=== PATIENT | male | born 1955 | race Caucasian/White ===

== ENCOUNTER 2022-06-25 06:30 | Emergency (ER) | payer MEDICARE, SELFPAY ==
[2022-06-25 06:34] VITALS: BMI 38.7
[2022-06-25 06:36] VITALS: BP 190/84; PULSE 101; RESP 21; TEMP 37.1; O2SAT 94
--- NOTE | 2022-06-25 06:41 | XRR_ITS ---
PROCEDURE INFORMATION: Exam: XR Chest Exam date and time: 06/25/2022 7:20 AM Age: 66 years old Clinical indication: Cough and dyspnea; Additional info: Dyspnea/cough TECHNIQUE: Imaging protocol: Radiologic exam of the chest. Views: 1 view. Other technique: Frontal portable upright view of the chest. COMPARISON: CR XR chest 2V* [id number] 06/18/2022 11:48 AM FINDINGS: Tubes, catheters and devices: EKG leads are present overlying the chest. Lungs: The lungs are clear bilaterally. The pulmonary vasculature is normal. Pleural spaces: No pleural effusion. No pneumothorax. Heart/Mediastinum: The heart is normal in size and contour. Mediastinum: Stable. Bones/joints: Right lateral vertebral body marginal osteophytes are noted at multiple thoracic spinal levels. XR/XR chest 1V portable [id number] IMPRESSION: No acute cardiopulmonary abnormality identified.
--- NOTE | 2022-06-25 06:49 | ED_ITS ---
HPI - SOB/Dyspnea General: Chief Complaint: Shortness of Breath/Dyspnea Stated Complaint: high BP,SOB Time Seen by Provider: 06/25/22 06:35 Source: patient Mode of arrival: ambulatory Limitations: other (Patient not wearing his hearing aids) History of Present Illness: HPI Narrative: 66-year-old male presents emergency room with complaints of orthopnea moderately productive cough for the last week or so. He also noticed some home blood pressure monitoring his blood pressure is going up he seen his primary care last week and was given some Lasix for a short period of time he states he lost 10 pounds but he still has significant orthopnea he denies any fever sweats chills no chest pain. Chest x-ray reviewed from 816. He is also mildly tachycardic today he is currently only on lisinopril 10 mg daily. He is reporting a mildly productive cough nonpurulent whitish clear phlegm. He also states feels he gets a lump in his throat that is been present for several weeks. MD elicited complaint: shortness of breath and cough Pertinent past history: congestive heart failure Onset (ago): week(s) Timing: constant Severity: mild Exacerbating factors: lying flat and exertion Relieving factors: rest and upright position Known history of: congestive heart failure Associated symptoms: Reports chest congestion, cough and orthopnea; Deny abdominal pain, chest pain, diaphoresis, dizziness, extremity pain, fever(s), hemoptysis, lightheadedness, myalgias, nausea, palpitations, paresthesias, polydipsia, polyuria, rash, sense of impending doom, syncope or vomiting Treatment prior to arrival: none Review of Systems Const: Denies: fever(s), chills, fatigue, malaise or diaphoresis ENMT: Denies: throat pain, ear or mastoid pain, nasal discharge or nasal congestion Card: Reports: orthopnea; Denies: chest pain, palpitations, lightheadedness or syncope Resp: Reports: chest congestion; Denies: hemoptysis GI: Denies: abdominal pain, nausea or vomiting : Denies: flank pain, dysuria, urinary frequency or urinary urgency Musc: Denies: extremity pain Skin/Breast: Denies: rash or pruritus Neuro: Denies: dizziness Endo: Denies: polyuria or polydipsia [facility] ED PFSH: Medical History (Updated 06/25/22 @ 08:34 by Roberto Jarrett DO) Congestive heart failure Hypertension Hypothyroidism Morbid obesity Social History (Updated 06/25/22 @ 06:53 by Roberto Jarrett DO) Smoking and tobacco status: never smoked Alcohol intake: never Physical Exam Const: COMMON NORMALS: no acute distress GENERAL APPEARANCE: cooperative and comfortable ORIENTATION/CONSCIOUSNESS: Yes awake, Yes oriented to person, Yes oriented to place and Yes oriented to time HENMT: COMMON NORMALS: normocephalic and atraumatic HEAD & SCALP: normocephalic and atraumatic Eye: COMMON NORMALS: Equal, round and reactive pupils present, EOMs intact bilaterally, conjunctivae normal and no scleral icterus CONJUNCTIVA: Yes conjunctivae normal PUPIL: Yes Equal, round and reactive pupils present Neck/C-Spine: COMMON NORMALS: full ROM, no lymphadenopathy, supple and no JVD Resp: COMMON NORMALS: normal respiratory effort, No retractions and No use of accessory muscles AUSCULTATION: crackles Laterality: bilateral (At the bases) Cardio: COMMON NORMALS: no JVD, regular rate, regular rhythm and No murmurs present (Cardio) RATE: regular rate RHYTHM: regular rhythm GI: COMMON NORMALS: Soft to palpation and No hepatosplenomegaly present AUSCULTATION: Yes normoactive bowel sounds PALPATION: Yes Soft to palpation, No Tenderness to palpation present (GI), No Guarding due to palpation present (GI) and Yes No hepatosplenomegaly present Extremity: COMMON NORMALS: normal to inspection, capillary refill normal, no clubbing, cyanosis or edema, no calf tenderness and no pedal edema Neuro: SENSORIUM/ORIENTATION: Yes oriented to person, Yes oriented to place and Yes oriented to time Skin: COMMON NORMALS: no rashes or lesions noted GENERAL SKIN EXAM: no rashes or lesions noted Course Vital Signs: Vital signs: Vital Signs Temperature 98.7 F 06/25/22 06:36 Pulse Rate 60 06/25/22 11:15 Respiratory Rate 18 06/25/22 11:15 Blood Pressure 146/69 06/25/22 11:15 Pulse Oximetry 96 06/25/22 11:15 Oxygen Delivery Me thod 06/25/22 08:11 Oxygen Flow Rate 2 06/25/22 08:47 MDM - SOB/Dyspnea Medical Decision Making Patient is feeling somewhat better after Lasix was given here. We will discharge him home on Lasix 40 mg daily and add Toprol-XL 25 p.o. daily suspect he has some diastolic dysfunction. Get him set up for an outpatient echocardiogram. I called and talked to his primary caregiver he is agreed to see him within the next 2 days to reevaluate patient discussed with the patient we can discharge him as long as he had close follow-up. Advised him I had talked to Dr. Agudelo he should call Dr. Agudelo's office immediately after leaving here and arrange for a follow-up visit in the next day or 2. Case management will call make arrangements for the echocardiogram. Medical Records I reviewed the patient's medical records. Lab Data I reviewed the patient's lab results. : 06/25/22 06:55 06/25/22 06:55 Labs/Radiology: Radiology Impressions Chest X-Ray 06/25/22 06:41 IMPRESSION: No acute cardiopulmonary abnormality identified. Laboratory Results WBC 9.9 10^3/uL (4.0-10.0) 06/25/22 06:55 RBC 4.70 10^6/uL (4.1-5.3) 06/25/22 06:55 Hgb 14.0 g/dL (11.7-16.6) 06/25/22 06:55 Hct 41.7 % (42.0-52.0) L 06/25/22 06:55 MCV 88.7 fl (80-94) 06/25/22 06:55 MCH 29.8 pg (28.0-34.0) 06/25/22 06:55 MCHC 33.6 g/dL (30.0-36.0) 06/25/22 06:55 RDW 13.0 % (12.1-15.1) 06/25/22 06:55 Plt Count 222 10^3/cmm (130-400) 06/25/22 06:55 MPV 10.6 fL (7.4-10.4) H 06/25/22 06:55 Neut % (Auto) 48.7 % 06/25/22 06:55 Lymph % (Auto) 24.8 % 06/25/22 06:55 [place] % (Auto) 7.0 % 06/25/22 06:55 Eos % (Auto) 16.7 % 06/25/22 06:55 Baso % (Auto) 2.3 % 06/25/22 06:55 Neut # (Auto) 4.79 10^3/uL (1.8-7.7) 06/25/22 06:55 Lymph # (Auto) 2.5 10^3/uL (0.8-4.8) 06/25/22 06:55 [place] # (Auto) 0.7 10^3/uL (0.2-0.9) 06/25/22 06:55 Eos # (Auto) 1.7 10^3/uL (0.0-0.8) H 06/25/22 06:55 Baso # (Auto) 0.2 10^3/uL (0.0-0.1) H 06/25/22 06:55 Nucleated RBC % (auto) 0 % 06/25/22 06:55 Nucleated RBCs # 0.0 /100WBC 06/25/22 06:55 Sodium 141 mmol/L (136-145) 06/25/22 06:55 Potassium 4.1 mmol/L (3.5-5.1) 06/25/22 06:55 Chloride 102 mmol/L (98-107) 06/25/22 06:55 Carbon Dioxide 27 mmol/L (22-29) 06/25/22 06:55 Anion Gap 16.1 (5-19) 06/25/22 06:55 BUN 17 mg/dL (8-23) 06/25/22 06:55 Creatinine 0.8 mg/dL (0.7-1.2) 06/25/22 06:55 GFR Calculation 97.0 mL/min (90-130) 06/25/22 06:55 Glucose 138 mg/dL (65-115) H 06/25/22 06:55 Calculated Osmolality 296 mOsm/kg (285-295) H 06/25/22 06:55 Calcium 8.9 mg/dL (8.5-10.5) 06/25/22 06:55 Total Bilirubin 0.4 mg/dL (0.15-1.2) 06/25/22 06:55 AST 17 U/L (0-40) 06/25/22 06:55 ALT 18 U/L (0-41) 06/25/22 06:55 Alkaline Phosphatase 63 U/L (40-130) 06/25/22 06:55 Troponin T Baseline 16 ng/L (0-15) H 06/25/22 06:55 Troponin T 120 Minute 14.16 ng/L (0-15) 06/25/22 08:52 Delta Troponin T -1.84 ABS# (0-10) L 06/25/22 08:52 NT-Pro-B Natriuret Pep 18 pg/mL (0-125) 06/25/22 06:55 Total Protein 6.9 g/dL (6.6-8.7) 06/25/22 06:55 Albumin 4.5 g/dL (3.5-5.2) 06/25/22 06:55 Globulin 2.4 g/dL (1.3-4.6) 06/25/22 06:55 Discharge Plan Discharge Patient Disposition: Home Clinical Impression: Congestive heart failure, Hypertension Prescriptions: New Toprol XL 25 mg tablet extended release 24 hr 25 mg PO DAILY Qty: 30 0RF Lasix 40 mg tablet 40 mg PO QAM Qty: 30 0RF Discontinued furosemide [Lasix] 20 mg Tablet 20 mg PO QAM No Action NyQuil 7.5-60-30-1,000 mg/30 mL Liquid 15 ml PO BEDTIME PRN (Reason: Sleep) Robitussin-DM 10-100 mg/5 mL Syrup 10 ml PO Q4H PRN (Reason: Cough) levothyroxine 100 mcg tablet 100 mcg PO QAM amlodipine 10 mg tablet 10 mg PO QPM Aleve 220 mg Tablet 440 mg PO Q12H PRN (Reason: Pain) Flonase Allergy Relief 50 mcg/actuation [place],Suspension 2 spray INTRANASAL DAILY PRN (Reason: Allergy Symptoms) Rx Instructions: administer into each nostril Primatene Mist 0.125 mg/actuation Hfa Aerosol Inhaler 1 puff INHALATION Q4H PRN (Reason: asthma) Rx Instructions: may repeat once after 1 minute; do not exceed 8 inhalations per 24 hrs ProAir HFA 90 mcg/actuation Hfa Aerosol Inhaler 2 puff INHALATION QID PRN (Reason: Shortness Of Breath) Discharge Orders: Discharge ED (Routine); Ordered 06/25/22 Ordered By: Roberto Jarrett Other Ambulatory Orders: DME: Oxygen (Order) Location: None Selected Ordered By: Roberto Jarrett Referrals: Jonnie Agudelo DO [Staff Physician] - Discharge Diet: Cardiac and Low Salt Discharge Activity: Increase activity as tolerated Patient Instructions: Opioid Safety Activity Restrictions/Additional Instructions: Continue your amlodipine increase your Lasix to 40 mg once daily and add Toprol- XL 25 mg daily. account manager trainee will make arrangements for your outpatient echocardiogram and follow-up with your primary care doctor within the week. Coding Level of Care Code ED [employer]fuels Manager for Chg Fwd Exam Comprehensive
[2022-06-25 07:02] LABS: Basophils # 0.2 10^3/uL (0.0-0.1); Basophils % 2.3 %; Eosinophils # 1.7 10^3/uL (0.0-0.8); Eosinophils % 16.7 %; Hematocrit 41.7 % (42.0-52.0); Lymphocytes # 2.5 10^3/uL (0.8-4.8); Lymphocytes % 24.8 %; Mean Corpuscular HGB Conc 33.6 g/dL (30.0-36.0); Mean Corpuscular Hemoglobin 29.8 pg (28.0-34.0); Mean Corpuscular Volume 88.7 fl (80-94); Mean Platelet Volume 10.6 fL (7.4-10.4); Monocytes # 0.7 10^3/uL (0.2-0.9); Neutrophils # 4.79 10^3/uL (1.8-7.7); Neutrophils % 48.7 %; Nucleated Red Blood Cells % 0 %; Platelet Count 222 10^3/cmm (130-400); White Blood Count 9.9 10^3/uL (4.0-10.0)
[2022-06-25] MEDS: FUROsemide 10 mg/mL SDV 4mL 40 MG IVP (07:10)
[2022-06-25] MEDS: lisinopril 20 mg Tablet PO (07:11)
[2022-06-25 07:15] VITALS: BP 140/75; PULSE 94; RESP 15; O2SAT 94
--- NOTE | 2022-06-25 07:17 | PC.NURSE ---
pt reports shortness of breath over the last few weeks. reports he came in today due to high blood pressure. Pt reports he was seen at his dr last week and was given lasix and he had lost 10 lbs. pts visitor reports pt is unable to lay flat anymore. pt reports a productive cough that is clear and sometimes pink tinged. pt taking deep breaths but appears unlabored. expiratory wheezes heard to bilateral upper lobes, other cruz clear. speaking in complete sentences without difficulty. skin pink/warm/dry. pt denies chest pain, nausea, or vomiting.
[2022-06-25 07:38] LABS: Troponin(5th) Baseline 16 ng/L (0-15)
--- NOTE | 2022-06-25 07:41 | PC.NURSE ---
pt on panel monitor, monitor appears trigeminy. Strip printed and physician notified. Strip placed on chart.
[2022-06-25 07:44] LABS: Alanine Aminotransferase 18 U/L (0-41); Albumin Level 4.5 g/dL (3.5-5.2); Alkaline Phosphatase 63 U/L (40-130); Aspartate Amino Transferase 17 U/L (0-40); Blood Urea Nitrogen 17 mg/dL (8-23); Calcium 8.9 mg/dL (8.5-10.5); Carbon Dioxide 27 mmol/L (22-29); Chloride 102 mmol/L (98-107); Globulin 2.4 g/dL (1.3-4.6); Glucose 138 mg/dL (65-115); NT Pro B Type Natriuretic Pept 18 pg/mL (0-125); Osmolality Calculated 296 mOsm/kg (285-295); Sodium 141 mmol/L (136-145); Total Bilirubin 0.4 mg/dL (0.15-1.2); Total Protein 6.9 g/dL (6.6-8.7)
[2022-06-25 07:52] LABS: Anion Gap 16.1 (5-19); Potassium 4.1 mmol/L (3.5-5.1)
[2022-06-25 08:11] VITALS: BP 140/78; PULSE 96; RESP 18; O2SAT 92
--- NOTE | 2022-06-25 08:35 | PC.NURSE ---
pt sitting on the side of the bed, respirations even and unlabored. updated pt with plan of care. visitor remains at bedside
[2022-06-25 08:47] VITALS: O2SAT 87; O2SAT 92
[2022-06-25 08:56] VITALS: PULSE 97; O2SAT 90
--- NOTE | 2022-06-25 08:56 | PC.NURSE ---
RT present for home jnen eval
[2022-06-25 09:25] LABS: Troponin 5 2HR 14.16 ng/L (0-15)
[2022-06-25 10:05] LABS: Troponin 5 2HR Delta -1.84 ABS# (0-10)
--- NOTE | 2022-06-25 10:14 | PC.NURSE ---
pt reports he does not want to wait for oxygen to be delivered and want to go pick it up. Charge nurse notified.
[2022-06-25 11:15] VITALS: BP 146/69; PULSE 60; RESP 18; O2SAT 96
--- NOTE | 2022-07-15 16:11 | DCPLANNER ---
late entry - net manager had message to schedule an outpatient echo cardiogram for patient. net manager attempted to call patient to confirm who patient sees for primary care and to confirm that patient wanted the test. net manager unable to speak with patient at this time.
== END 2022-06-25 11:17 | disposition home or self-care (01) ==
PROVIDERS: Emergency Provider Family Medicine
DX: I11.0 Hypertensive heart disease with heart failure (principal); I50.9 Heart failure, unspecified
CPT/HCPCS: 36415; 71045; 80053; 83880; 84484; 85025; 94760; 96374; 99285; J1940

== ENCOUNTER → 2022-07-10 16:13 | Outpatient (BNVA) | payer MEDICARE, SELFPAY | PROVIDERS: PCP Electrodiagnostic Medicine; Referring Provider Electrodiagnostic Medicine; Visit Provider Internal Medicine | DX: I11.0 Hypertensive heart disease with heart failure (principal); I50.9 Heart failure, unspecified; R06.02 Shortness of breath; R07.9 Chest pain, unspecified; I48.91 Unspecified atrial fibrillation; Z87.891 Personal history of nicotine dependence | CPT/HCPCS: 80048; 83880; 99204 ==

== ENCOUNTER 2022-07-11 06:01 | Outpatient (CLI) | payer MEDICARE, SELFPAY ==
--- NOTE | 2022-07-11 06:15 | USCV_ITS ---
Epifanio Naranjo Age: 66 Gender: M : 1955 Exam Date: 07/11/2022 06:29 Ordering Phys: Pool Washington M.D ([email or web address]) Technologist: BIRGIT [place] [facility] [place]ication: CHRONIC HEART FAILURE BP: 159 / 90 HR: 83 Rhythm: Sinus Technical Quality: Suboptimal MEASUREMENTS (Male / Female) Normal Values 2D ECHO LVOT Diameter 2.0 cm LV Ejection Fraction MOD 2C 65.8 % LV Ejection Fraction 2C AL 66.4 % LA Diameter 3.7 cm LA Width 3.3 cm LA Height 4.9 cm RA Width 3.5 cm RA Height 4.3 cm Aorta at Sinotubular Diameter 2.6 cm IVC Diameter 1.6 cm M-MODE Aortic Annulus Diameter 3.3 cm LA Ao Ratio MM 1.0 MV E Point Septal Separation 0.4 cm DOPPLER AV Peak Velocity 170.0 cm/s LVOT Peak Velocity 141.0 cm/s AV Area Cont Eq vti 2.8 cm squared AV Area Cont Eq pk 2.7 cm squared MV Peak Velocity 94.0 cm/s MV Area PHT 2.7 cm squared Mitral E to A Ratio 1.1 MV E' Velocity 50.0 cm/s Mitral E to MV E' Ratio 7.7 Mitral E to LV E' Lateral Ratio 6.9 Mitral E to LV E' Septal Ratio 8.8 TV Peak E Velocity 50.0 cm/s Right Atrial Pressure 3.0 mmHg PV Peak Velocity 130.0 cm/s RV Acceleration Time 0.1 s RV Ejection Time 0.3 s RV AcT/ET 0.3 FINDINGS Left Ventricle Left ventricle is normal in size. LV systolic function is normal with EF 55 to 60%. No regional wall motion abnormalities are seen. Right Ventricle RV is normal in size and function Right Atrium Normal in size Left Atrium Normal in size Mitral Valve Structurally normal mitral valve. Mild mitral regurgitation. Aortic Valve Aortic valve is grossly normal. No significant stenosis. Tricuspid Valve Trace tricuspid regurgitation. Insufficient TR jet to calculate RVSP. Pulmonic Valve Not well-visualized Pericardium Grossly normal Aorta Normal in size IVC IVC appears to be normal CONCLUSIONS Technically limited quality echocardiogram because of poor ultrasonic windows. LV systolic function is normal with EF 55 to 60%. Mild mitral regurgitation. Trace tricuspid regurgitation. No comparison studies are available Pool Washington MD (Electronically Signed) Final Date: 17 July 2022 16:56 S
== END 2022-07-11 06:02 | disposition home or self-care (01) ==
LOC: RAD 06:02
PROVIDERS: PCP Electrodiagnostic Medicine; Visit Provider Internal Medicine
DX: I50.9 Heart failure, unspecified (principal); I10 Essential (primary) hypertension; I08.1 Rheumatic disorders of both mitral and tricuspid valves
CPT/HCPCS: 93306

== ENCOUNTER → 2022-10-09 14:22 | Outpatient (BNVA) | payer MEDICARE, SELFPAY | PROVIDERS: PCP Family Medicine; Visit Provider Family Medicine | DX: J98.01 Acute bronchospasm (principal); E03.9 Hypothyroidism, unspecified; I11.0 Hypertensive heart disease with heart failure; I50.9 Heart failure, unspecified; R25.2 Cramp and spasm | CPT/HCPCS: 80048; 83735 ==

== ENCOUNTER → 2022-11-21 10:50 | Outpatient (BNVA) | payer MEDICARE, SELFPAY | PROVIDERS: PCP Family Medicine; Visit Provider Internal Medicine Pulmonary Disease | DX: J98.01 Acute bronchospasm (principal); R05.3 Chronic cough; J32.9 Chronic sinusitis, unspecified; R06.09 Other forms of dyspnea; R07.9 Chest pain, unspecified; I11.0 Hypertensive heart disease with heart failure; I50.9 Heart failure, unspecified; Z87.891 Personal history of nicotine dependence; D72.10 Eosinophilia, unspecified; I10 Essential (primary) hypertension; R22.43 Localized swelling, mass and lump, lower limb, bilateral | CPT/HCPCS: 36415; 82785; 85651; 86003; 99204 ==

== ENCOUNTER 2022-12-10 09:52 | Outpatient (CLI) | payer MEDICARE, SELFPAY | END 2022-12-10 09:53 | disposition home or self-care (01) | LOC: RT 09:54 | PROVIDERS: PCP Family Medicine; Visit Provider Internal Medicine Pulmonary Disease | DX: J98.01 Acute bronchospasm (principal); I10 Essential (primary) hypertension | CPT/HCPCS: 94010; 94618; 94726; 94729 ==

== ENCOUNTER 2023-01-03 08:44 | Outpatient (CLI) | payer MEDICARE, SELFPAY ==
[2023-01-03 09:22] VITALS: BMI 40.6
--- NOTE | 2023-01-03 09:25 | ECG_ITS ---
[facility] Test Date: 2023-01-03 Pat Name: Epifanio Naranjo Department: Room: Gender: Male [employer] Worker: : 1955 Requested By: Doe Carneyr B Order Number: [id number] Akua MD: Julia Mahmood M.D. Interpretive Statements NAME OF STUDY: LEXISCAN SESTAMIBI STRESS TEST INDICATION: Dyspnea, PROCEDURE: At the baseline, the EKG revealed normal sinus rhythm with normal ST Ts. The baseline heart was 64 bpm with a blood pressue of 144/82 mm of Hg Lexiscan was infused over a period of 20 seconds. A total of 0.4 milligrams of Lexiscan was infused. The stress phase was continued for a total of 5 minutes. Heart rate at the end of the stress phase was 74 bpm with a blood pressure 148/87 mm of Hg. The EKG at the peak infusion revealed no significant changes ventricular arrhythmia in the form of isolated PVCs were noted during the stress. Sestamibi was injected 20 seconds after the Lexiscan infusion. Heart rate at the end of the recovery phase was 70 bpm with a blood pressure of 152/72 mm of Hg. CONCLUSION: 1. No significant EKG changes with the LexiScan infusion 2. No LexiScan induced chest pain or cardiac arrhythmia 3. Normal blood pressure and heart rate response 4. Sestamibi/sestamibi perfusion scan pending; see separate report. Electronically Signed On 01-04-2023 16:51:24 DERIVATIVES TRADER by Julia Mahmood M.D. [email or web address]
--- NOTE | 2023-01-03 09:25 | NMCV_ITS ---
NM anjel perf SPECT r/s* [id number] Epifanio Naranjo Age: 67 Gender: M : 1955 Exam Date: 01/03/2023 10:04 Ordering Phys: Doe Rosenbaum MD Technologist: FAISAL Diaz Exam Location: [facility] Indications: SHORTNESS OF BREATH, HEART FAILURE STRESS TEST Please see separate stress test report in [facility] for full findings IMAGE PROTOCOL Rest/Stress 1 Lexiscan Day Radiopharmaceutical Dose (mCi) Administration Site Administered by Rest: Tc-99m 10.6 IV FAISAL Diaz Sestamibi Stress:Tc-99m 32.5 IV FAISAL Baird Sestamibi Rest: 03-Jan-2023 60 Discovery 630 Stress: 03-Jan-2023 30 Discovery 630 0.4mg Lexiscan. Images obtained in supine and prone position. SPECT RESULTS Technical Quality: Excellent Raw Data Analysis: Normal Image Corrections: No attenuation or motion correction applied Summed Stress Score: 0 Summed Rest Score: 0 Summed Difference Score: 0 PERFUSION FINDINGS Uniform myocardial tracer uptake with no significant perfusion abnormalities FUNCTIONAL RESULTS (calculated via Gated SPECT) Stress Image LV EF (%): 70 Stress EDV (mL):89 TID: 0.94 Stress ESV (mL):27 FUNCTIONAL FINDINGS: Segmental wall motion analysis revealing no gross wall motion abnormalities IMPRESSIONS 1. Uniform myocardial tracer uptake with no significant perfusion abnormalities. 2. Normal LV ejection fraction of 70%. 3. LV wall motion analysis revealing no gross wall motion abnormalities. 4. Normal LV volume Low probability for coronary ischemia, based on the above findings Dr Julia Mahmood MD FACC (Electronically Signed) Final Date: 03 January 2023 17:08 S
[2023-01-03] MEDS: regadenoson 0.4 Mg/5 ml Syringe IVP (10:35)
[2023-01-03 10:50] VITALS: BP 152/72; PULSE 70
== END 2023-01-03 08:45 | disposition home or self-care (01) ==
PROVIDERS: PCP Family Medicine; Visit Provider Internal Medicine Pulmonary Disease
DX: R06.09 Other forms of dyspnea (principal); I50.9 Heart failure, unspecified
CPT/HCPCS: 36415; 78452; 93017; 96374; A9500; J2785

== ENCOUNTER → 2023-12-01 08:24 | Outpatient (BNVA) | payer OTHER, SELFPAY | PROVIDERS: PCP Family Medicine; Visit Provider Specialist | DX: M19.041 Primary osteoarthritis, right hand; M19.042 Primary osteoarthritis, left hand | CPT/HCPCS: 73130 ==

== ENCOUNTER 2023-12-01 11:07 | Outpatient (CLI) | payer OTHER, SELFPAY | END 2023-12-01 11:08 | disposition home or self-care (01) | LOC: SPT 11:08 | PROVIDERS: PCP Family Medicine; Visit Provider Specialist | DX: Z46.89 Encounter for fitting and adjustment of other specified devices (principal); M18.11 Unilateral primary osteoarthritis of first carpometacarpal joint, right hand | CPT/HCPCS: 97760; L3924 ==

== ENCOUNTER → 2025-03-25 13:31 | Outpatient (BNVA) | payer OTHER, SELFPAY | PROVIDERS: PCP Family Medicine; Visit Provider Family Medicine | DX: I10 Essential (primary) hypertension (principal); Z12.5 Encounter for screening for malignant neoplasm of prostate | CPT/HCPCS: 80053; 80061; 84153; 84439; 84443; 85025 ==

== ENCOUNTER → 2025-09-28 11:19 | Outpatient (BNVA) | payer OTHER, SELFPAY | PROVIDERS: PCP Family Medicine; Visit Provider Family Medicine | DX: E03.9 Hypothyroidism, unspecified (principal) | CPT/HCPCS: 84439; 84443 ==